=== PATIENT | male | born 1965 | race Asian ===

== ENCOUNTER 2021-02-08 11:50 | Inpatient (IN) | payer BC, SELFPAY ==
[~2021-02-08] VITALS: Ht 160 cm; Wt 71.7 kg
--- NOTE | 2021-02-08 07:05 | NUR ---
ENDORSE PT TO NIGHT NURSE FOR CONTINUITY OF CARE Addendum: 02/08/21 at 1912 by Mamie Tomas RN WRONG TIME.
[2021-02-08 11:52] VITALS: BP 168/92
--- NOTE | 2021-02-08 12:15 | NUR ---
To ED bed 01
--- NOTE | 2021-02-08 12:20 | NUR ---
Dr. Falcon with pt for MSE
--- NOTE | 2021-02-08 12:32 | NUR ---
received pt from triage and placed to bed 01. pt currently a/o x 4 ,gcs 15 and able to move all extremities. connected to cardiac monitoring and pulse ox. VSS 55 year old male with hx of HTN, DM, and BPH coming from home for c/o substernal chest pain and urinary hesitancy for two weeks. pt currently denies SOB/cough. denies headache/blurry vision. denies any other s/sx.
[2021-02-08 12:35] LABS: HEMATOCRIT 43.6 % (36-52); MEAN CORPUSCULAR HEMOGLOBIN 29 pg (27-31); MEAN CORPUSCULAR HGB CONC 34 g/dL (33-37); MEAN CORPUSCULAR VOLUME 83.7 fL (80-94); PLATELET COUNT (AUTO) 432 K/uL (140-450); RED BLOOD CELL COUNT(AUTO) 5.21 MIL/uL (4.20-6.10); RED CELL DISTRIBUTION WIDTH 12.7 % (11.6-13.7); WHITE BLOOD COUNT (AUTO) 11.2 K/uL (4.8-10.8)
[2021-02-08 12:36] LABS: APPEARANCE,URINE CLEAR (CLEAR); BILIRUBIN,URINE NEGATIVE (NEGATIVE); BLOOD, URINE 1+ (NEGATIVE); COLOR,URINE YELLOW (YELLOW); LEUKOCYTE ESTERASE ,URINE NEGATIVE (NEGATIVE); NITRITE, URINE NEGATIVE (NEGATIVE); UGLUCOSE TRACE (NEGATIVE)
[2021-02-08 12:48] LABS: ALBUMIN 4.4 g/dL (3.4-5.0); ANION GAP 15.4 (8-16); CARBON DIOXIDE 22.8 mmol/L (21-32); CREATININE 1.1 mg/dL (0.6-1.3); POTASSIUM 3.2 mmol/L (3.5-5.1); TOTAL BILIRUBIN 0.3 mg/dL (0.0-1.0)
[2021-02-08 13:06] LABS: RBC,URINE 0-5 /HPF (0-5); WBC,URINE NONE SEEN /HPF (0-5)
[2021-02-08] MEDS ORDERED: HYDR-4004 PO (13:09)
[2021-02-08] MEDS ORDERED: AMLO10TA PO (13:09)
[2021-02-08] MEDS ORDERED: GLYB-200 PO ×2 (13:09)
[2021-02-08] MEDS ORDERED: OMEP40EC24 PO (13:09)
[2021-02-08] MEDS ORDERED: METF1000 PO (13:09)
[2021-02-08] MEDS ORDERED: LOSA50TA57 PO (13:09)
[2021-02-08] MEDS ORDERED: ATOR40TA PO (13:09)
[2021-02-08] MEDS ORDERED: TAMS0.4C96 PO (13:09)
[2021-02-08] MEDS ORDERED: FURO-572 PO (13:09)
[2021-02-08] MEDS ORDERED: GEMF600T5 PO (13:09)
[2021-02-08] MEDS ORDERED: NACL 0.9% 1,000 ML IV ONE (13:10)
[2021-02-08] MEDS ORDERED: POTASSIUM CHLORIDE 10 MEQ TABER PO ONE (13:10)
[2021-02-08 13:23] LABS: LYMPHOCYTES % (MANUAL) 11 % (20-46); MONOCYTES % (MANUAL) 7 % (5-12)
--- NOTE | 2021-02-08 13:29 | NUR ---
pt laying down in semi fowlers position. a/o x 4, gcs 15. does not appear to be in any distress. VSS
[2021-02-08] MEDS ORDERED: DOCUSATE SODIUM 100 MG GELCAP PO PRN (13:30)
[2021-02-08] MEDS ORDERED: POTASSIUM CHLORIDE 40 MEQ, LIDOCAINE MPF 1% 25 MG in NACL 0.9% 250 ML IV PRN (13:30)
[2021-02-08] MEDS ORDERED: ONDANSETRON 4 MG/2 ML VIAL IM/IVP PRN (13:30)
[2021-02-08] MEDS: NACL 0.9% 1,000 ML IV SCH ×2 (13:30→19:16)
[2021-02-08] MEDS ORDERED: MORPHINE SULFATE 2 MG/ML SYR IVP PRN (13:30)
[2021-02-08] MEDS ORDERED: SODIUM PHOS / POTASSIUM PHOS 1 PKT PDR PO PRN (13:30)
[2021-02-08] MEDS ORDERED: MAG SULF 2000 MG/WATER PREMIX 50 ML IV PRN (13:30)
[2021-02-08] MEDS ORDERED: HYDROcodone/APAP 5/325 MG 1 TAB TAB PO PRN (13:30)
[2021-02-08] MEDS ORDERED: ACETAMINOPHEN 325 MG TAB PO PRN (13:30)
[2021-02-08] MEDS ORDERED: DEXTROSE 50% 50 ML SYR IVP PRN (13:30)
[2021-02-08 14:11] LABS: MAGNESIUM 1.5 mg/dL (1.8-2.4); PHOSPHORUS 2.4 mg/dL (2.5-4.9); THYROID STIMULATING HORMONE 0.53 uIU/mL (0.34-3.74)
[2021-02-08 14:26] LABS: BARBITURATE, URINE NEGATIVE ng/ml (NEG <=200); BENZODIAZEPINE, URINE NEGATIVE ng/mL (NEG <=200); CANNABINOID, URINE NEGATIVE ng/mL (NEG <=50); COCAINE, URINE NEGATIVE ng/mL (NEG <=300); OPIATE, URINE NEGATIVE ng/mL (NEG <=2000); PHENCYCLIDINE SCREEN,URINE NEGATIVE ng/mL (NEG <=25)
[2021-02-08] MEDS ORDERED: ALBU0.0912 IH (14:26)
[2021-02-08] MEDS ORDERED: FLUT1POW3 IH (14:26)
--- NOTE | 2021-02-08 14:43 | NUR ---
report endorsed to Mamie LARKIN. pt will be going to tele 111-b. pt currently a/o x4, gcs 15. able to move all extremities
--- NOTE | 2021-02-08 14:45 | NUR ---
RECEIVED REPORT FROM ER NURSE ADA. PT IS AAOX4, ROOM AIR. PT HAS 18G LAC INFUSING NS AT 100 ML/H. PT IS AMBULATORY, SKIN INTACT. PT RECEIVED K-DUR IN ER.WILL PREPARE PT'S ROOM AND AWAIT PT.
--- NOTE | 2021-02-08 14:48 | NUR ---
RECEIVED PT FROM ER NURSE. PT STABLE. NO SIGNS OF DISTRESS NOTED. OBTAINED MRSA SWAB. INTRODUCE PT TO ROOM. SAFETY MEASURES IN PLACE, WILL CONTINUE TO MONITOR.
[2021-02-08 14:50] VITALS: BP 143/79
[2021-02-08 16:00] VITALS: BP 116/68
[2021-02-08] MEDS: INSULIN LISPRO SLIDING SCALE 100 UNITS/ML VIAL SUBQ PRN (16:33)
--- NOTE | 2021-02-08 16:33 | NUR ---
ADMINISTERED 4 UNITS OF HUMALOG FOR BLOOD GLUCOSE OF 203. MEDICATION EDUCATION PROVIDED. PT VERBALIZED UNDERSTANDING, PT TOLERATED WELL. WILL CONTINUE TO MONITOR.
[2021-02-08] MEDS: BLOOD GLUCOSE MONITORING 1 DEV DEV FS SCH ×2 (16:34→21:44)
--- NOTE | 2021-02-08 16:35 | NUR ---
ADMINISTERED SCHEDULED MEDICATION, MEDICATION EDUCATION PROVIDED. PT TOLERATED WELL. PT IS STABLE, WILL CONTINUE TO MONITOR
[2021-02-08] MEDS: metFORMIN 500 MG TAB PO SCH (16:51)
--- NOTE | 2021-02-08 16:57 | NUR ---
ADMINISTERED SCHEDULED MEDICATION, NEUTRA-PHOS FOR PHOSPHORUS 2.4. MEDICATION EDUCATION PROVIDED. PT VERBALIZED UNDERSTANDING, PT TOLERATED WELL. WILL CONTINUE TO MONITOR
--- NOTE | 2021-02-08 17:11 | NUR ---
ADMINISTERED MAGNESIUM SULFATE FOR MAGNESIUM 1.5, MEDICATION EDUCATION PROVIDED. PT VERBALIZED UNDERSTANDING. PT TOLERATING WELL. WILL CONTINUE TO MONITOR.
[2021-02-08] MEDS ORDERED: SODIUM PHOS / POTASSIUM PHOS 1 PKT PDR PO ONE (17:15)
[2021-02-08] MEDS ORDERED: MAG SULF 2000 MG/WATER PREMIX 100 ML IV ONE (17:15)
[2021-02-08] MEDS ORDERED: APAP/BUTAL/CAFF 325/50/40 MG 1 TAB PO PRN (17:20)
[2021-02-08] MEDS ORDERED: ALBUTEROL SULFATE/IPRATROPIU 3 ML SOL IH PRN (17:25)
--- NOTE | 2021-02-08 19:05 | NUR ---
ENDORSE PT TO NIGHT NURSE FOR CONTINUITY OF CARE
--- NOTE | 2021-02-08 19:19 | NUR ---
ADMINISTERED SCHEDULED FLUIDS, AFTER MAGNESIUM FINISHED. EDUCATION PROVIDED. PT VERBALIZED UNDERSTANDING. PT TOLERATED WELL. ENDORSE TO NIGHT NURSE FOR CONTINUITY OF CARE.
--- NOTE | 2021-02-08 19:25 | NUR ---
RECEIVED BEDSIDE REPORT FROM DAY SHIFT NURSE FOR CONTINUITY OF CARE. PT IS AWAKE AND ALERT, SPEAKING APPROPRIATELY. ON RA WITH BREATHING UNLABORED. PT IS UP TO THE RESTROOM WITH A STEADY GAIT. SR ON TELE MONITORING. SKIN IS WARM, DRY, AND INTACT. IV IS IN THE LEFT AC 18 GAUGE RUNNING NS AT 100. PT IS STABLE AT THIS TIME. PLAN OF CARE DISCUSSED. UNIVERSAL AND STANDARD PRECAUTIONS IN PLACE.
[2021-02-08 20:00] VITALS: BP 127/76
[2021-02-08 20:39] LABS: ANION GAP 9.1 (8-16); CREATININE 0.9 mg/dL (0.6-1.3); POTASSIUM 3.1 mmol/L (3.5-5.1)
[2021-02-08] MEDS ORDERED: glyBURIDE 5 MG TAB PO SCH (21:00)
--- NOTE | 2021-02-08 21:10 | NUR ---
PT JUST CAME BACK FROM CT SCAN OF THE HEAD. PT WAS TAKEN BY WHEELCHAIR WITH THE CORPORATE ATTORNEY. WILL WAIT FOR RESULTS.
--- NOTE | 2021-02-08 21:26 | NUR ---
NOTIFIED DR. SILVA ABOUT THE CRITICAL LABS OF POTASSIUM 3.1 AND NA 118. RECEIVED RESPONSE AND NEW ORDER OF 0.45% NS AT 50 ML PER HOUR. NS AT 100 ML/HR WAS DISCONTINUED. WILL CHANGE FLUIDS STAT.
[2021-02-08] MEDS ORDERED: NACL 0.45% 1,000 ML IV SCH (21:35)
[2021-02-08] MEDS: TAMSULOSIN 0.4 MG CAP PO SCH (21:38)
[2021-02-08] MEDS: ATORVASTATIN 20 MG TAB PO SCH (21:39)
[2021-02-08] MEDS: glyBURIDE 5 MG TAB PO SCH (21:39)
--- NOTE | 2021-02-08 21:45 | NUR ---
PT IS AWAKE AND ALERT. SPEAKING APPROPRIATELY. A&OX4. PT DENIES ANY PAIN. BREATHING IS UNLABORED ON RA. FLUIDS ARE PATENT AND INFUSING. WILL CONTINUE TO MONITOR.
--- NOTE | 2021-02-08 23:30 | NUR ---
MADE ROUNDS ON PT. HE IS SLEEPING IN SEMI FOWLERS POSITION. AWOKEN EASILY BY NOISE. IV FLUIDS ARE INFUSING ORDERED. NO DISTRESS NOTED. PT IS STABLE.
[2021-02-09] VITALS: BP 117/76
[2021-02-09 00:44] LABS: ANION GAP 9.7 (8-16); CARBON DIOXIDE 29.7 mmol/L (21-32); CREATININE 0.9 mg/dL (0.6-1.3); POTASSIUM 4.4 mmol/L (3.5-5.1)
--- NOTE | 2021-02-09 01:30 | NUR ---
PT IS UP TO THE RESTROOM. GAIT IS STEADY. PT IS ALERT. BREATHING IS REGULAR AND UNLABORED. PT DENIES PAIN. WILL CONTINUE TO MONITOR.
--- NOTE | 2021-02-09 03:11 | NUR ---
PT JUST GOT BACK TO BED AFTER USING THE RESTROOM. PT WAS WALKING STEADILY. IV IS PATENT AND FLUSHING WELL. BEDSIDE TABLE IS WITHIN REACH. CALL LIGHT ALSO WITHIN REACH.
[2021-02-09 04:00] VITALS: BP 115/66
[2021-02-09 04:35] LABS: ANION GAP 8.7 (8-16); CARBON DIOXIDE 30.2 mmol/L (21-32); CREATININE 0.9 mg/dL (0.6-1.3); POTASSIUM 3.9 mmol/L (3.5-5.1)
--- NOTE | 2021-02-09 05:00 | NUR ---
PT IS SLEEPING IN SEMI FOWLERS POSITION. NO DISTRESS NOTED. IV FLUIDS ARE INFUSING. NO SOB, PAIN, OR RESPIRATORY DISTRESS AT THIS TIME. PT IS RESTING COMFORTABLY. BEDSIDE TABLE WITHIN REACH.
[2021-02-09 05:52] LABS: BASOPHILS % (AUTO) 0.4 % (0.0-2.0); EOSINOPHILS # (AUTO) 0.1 K/uL (0-0.4); HEMATOCRIT 43.7 % (36-52); HEMOGLOBIN 15.2 g/dL (12.0-18.0); LYMPHOCYTES # (AUTO) 1.4 K/uL (2.0-11.5); LYMPHOCYTES % (AUTO) 14.9 % (20.5-51.1); MEAN CORPUSCULAR HEMOGLOBIN 30 pg (27-31); MEAN CORPUSCULAR HGB CONC 35 g/dL (33-37); MEAN CORPUSCULAR VOLUME 85.8 fL (80-94); MONOCYTES # (AUTO) 1.2 K/uL (0.8-1.0); MONOCYTES % (AUTO) 13.2 % (1.7-9.3); NEUTROPHILS # (AUTO) 6.4 K/uL (1.8-7.7); NEUTROPHILS % (AUTO) 70.5 % (42.2-75.2); PLATELET COUNT (AUTO) 477 K/uL (140-450); RED CELL DISTRIBUTION WIDTH 12.7 % (11.6-13.7); WHITE BLOOD COUNT (AUTO) 9.1 K/uL (4.8-10.8)
[2021-02-09] MEDS: PANTOPRAZOLE 40 MG TABEC PO SCH (06:21)
[2021-02-09] MEDS: BLOOD GLUCOSE MONITORING 1 DEV DEV FS SCH ×4 (06:21→20:41)
--- NOTE | 2021-02-09 06:21 | NUR ---
BS READING WAS 129. NO INSULIN WAS NEEDED PER SLIDING SCALE. PT IS STABLE.
--- NOTE | 2021-02-09 07:19 | NUR ---
ENDORSED PT TO DAY SHIFT NURSE FOR CONTINUITY OF CARE. PT IS STABLE AT THIS TIME. PLAN OF CARE DISCUSSED.
--- NOTE | 2021-02-09 07:20 | NUR ---
RECEIVED REPORT FROM NIGHT NURSE FOR CONTINUITY OF CARE. PT RESTING IN BED, NO SIGNS OF DISTRESS NOTED. PT ON ROOM AIR. PT HAS LAC 18G INFUSING 1/2 NORMAL SALINE AT 50ML/H. SAFETY MEASURES IN PLACE, WILL CONTINUE TO MONITOR.
[2021-02-09 08:00] VITALS: BP 132/69
[2021-02-09] MEDS: metFORMIN 500 MG TAB PO SCH ×2 (08:18→17:08)
[2021-02-09] MEDS: glyBURIDE 5 MG TAB PO SCH ×2 (08:19→20:42)
[2021-02-09] MEDS: LOSARTAN 50 MG TAB PO SCH (08:19)
[2021-02-09] MEDS: amLODIPine 5 MG TAB PO SCH (08:19)
--- NOTE | 2021-02-09 08:22 | NUR ---
ADMINISTERED SCHEDULED MEDICATION, MEDICATION EDUCATION PROVIDED. PT VERBALIZED UNDERSTANDING. PT TOLERATED WELL. WILL CONTINUE TO MONITOR.
[2021-02-09] MEDS ORDERED: hydroCHLOROthiazide 25 MG TAB PO SCH (09:00)
[2021-02-09 09:21] LABS: ANION GAP 10.2 (8-16); CARBON DIOXIDE 28.1 mmol/L (21-32); CREATININE 0.9 mg/dL (0.6-1.3); POTASSIUM 4.3 mmol/L (3.5-5.1)
[2021-02-09] MEDS: NACL 0.9% 1,000 ML IV SCH ×2 (10:25→23:52)
--- NOTE | 2021-02-09 10:27 | NUR ---
ADMINISTERED SCHEDULED FLUIDS, MEDICATION EDUCATION PROVIDED. PT VERBALIZED UNDERSTANDING. PT TOLERATED WELL. PT IS STABLE, WILL CONTINUE TO MONITOR.
[2021-02-09] MEDS: INSULIN LISPRO SLIDING SCALE 100 UNITS/ML VIAL SUBQ PRN (11:25)
--- NOTE | 2021-02-09 11:26 | NUR ---
ADMINISTERED 4 UNITS OF HUMALOG FOR BLOOD GLUCOSE OF 230. MEDICATION EDUCATION PROVIDED. PT VERBALIZED UNDERSTANDING. PT TOLERATED WELL. PT IS STABLE, WILL CONTINUE TO MONITOR.
[2021-02-09 12:00] VITALS: BP 115/60
--- NOTE | 2021-02-09 13:26 | NUR ---
PT SITTING IN BED, NO SIGNS OF DISTRESS NOTED, ALL NEEDS MET. WILL CONTINUE TO MONITOR
[2021-02-09 13:47] LABS: CARBON DIOXIDE 27.4 mmol/L (21-32); POTASSIUM 3.4 mmol/L (3.5-5.1)
--- NOTE | 2021-02-09 13:52 | NUR ---
NOTIFIED DR SILVA PT SODIUM: 116, RECEIVED VERBAL ORDERED TO INCREASE NORMAL SALINE TO 80ML/H. WILL INPUT ORDER AND CARRY IT OUT.
--- NOTE | 2021-02-09 15:27 | NUR ---
ROUNDING ON PT. PT SITTING BY BED. PT IS STABLE, NO SIGNS OF DISTRESS NOTED. WILL CONTINUE TO MONITOR.
[2021-02-09 16:00] VITALS: BP 133/81
[2021-02-09 16:31] LABS: ANION GAP 10.7 (8-16); POTASSIUM 3.7 mmol/L (3.5-5.1)
--- NOTE | 2021-02-09 17:11 | NUR ---
ADMINISTERED SCHEDULED MEDICATION, MEDICATION EDUCATION PROVIDED. PT VERBALIZED UNDERSTANDING. PT TOLERATED WELL. WILL CONTINUE TO MONITOR.
--- NOTE | 2021-02-09 19:15 | NUR ---
ENDORSE PT TO NIGHT NURSE FOR CONTINUITY OF CARE
--- NOTE | 2021-02-09 19:20 | NUR ---
RECEIVED BEDSIDE REPORT FROM DAY SHIFT NURSEJAGUAR, FOR CONTINUITY OF CARE. PT IS AWAKE AND ALERT, A&OX4. ANSWERS QUESTIONS APPROPRIATELY. PT IS UP AT THE SINK BRUSHING TEETH. NO RESPIRATORY DISTRESS NOTED ON RA. SR ON TELE MONITORING. SKIN IS WARM, DRY, AND INTACT. NS IS INFUSING THROUGH LEFT AC 18 GAUGE AT 80 ML/HR PER ORDER. PT IS STABLE AT THIS TIME. PLAN OF CARE DISCUSSED. STANDARD PRECAUTIONS IN PLACE.
[2021-02-09 20:00] VITALS: BP 131/71
--- NOTE | 2021-02-09 20:09 | NUR ---
LAB AT BEDSIDE DRAWING BMP. WILL WAIT FOR RESULTS.
[2021-02-09 20:30] LABS: ANION GAP 9.9 (8-16); CARBON DIOXIDE 29.3 mmol/L (21-32); POTASSIUM 4.2 mmol/L (3.5-5.1)
--- NOTE | 2021-02-09 20:31 | NUR ---
TECH JUST COMPLETED ECHOCARDIOGRAM AT BEDSIDE WITH PT. WILL WAIT FOR RESULTS.
--- NOTE | 2021-02-09 20:41 | NUR ---
BS READING WAS 74 AND HE WAS GIVEN ORANGE JUICE TO DRINK. PT FINISHED THE ORANGE JUICE AND NOW IS LAYING IN SEMI FOWLERS POSITION. HE IS STABLE AT THIS TIME.
[2021-02-09] MEDS: ATORVASTATIN 20 MG TAB PO SCH (20:42)
[2021-02-09] MEDS: TAMSULOSIN 0.4 MG CAP PO SCH (20:42)
--- NOTE | 2021-02-09 22:48 | NUR ---
PT IS SLEEPING IN SEMI FOWLERS POSITION. PT AWOKE WHEN WALKING INTO THE ROOM. STATED HE HAD A HEADACHE. PT STATED IT WAS MORE OF AN ACHING PAIN. A&OX4. NO CONFUSION NOTED. PT IS SPEAKING APPROPRIATELY. HE WAS OFFERED TYLENOL BUT THE PATIENT ONLY WANTED AN ICE PACK. WILL MONITOR HEADACHE.
[2021-02-10] VITALS (7 sets, daily range): BP systolic 112–140; BP diastolic 55–83
--- NOTE | 2021-02-10 00:30 | NUR ---
ROUNDED ON PT. HE IS LAYING IN BED, AWAKE, AND ALERT. PT DENIES ANY PAIN. RESPIRATIONS ARE EVEN AND UNLABORED. IV IS PATENT AND INFUSING. IV IS INTACT WITH NO SIGNS OF INFILTRATION PRESENT. BED IS IN THE LOWEST POSITION.
[2021-02-10 00:37] LABS: ANION GAP 7.5 (8-16); POTASSIUM 3.5 mmol/L (3.5-5.1)
--- NOTE | 2021-02-10 02:30 | NUR ---
PT IS SLEEPING. CHEST RISE AND FALL IS SYMMETRICAL. NO RESPIRATORY DISTRESS. NO PAIN OR SOB NOTED. PT IS STABLE.
--- NOTE | 2021-02-10 04:30 | NUR ---
PT IS UP TO THE RESTROOM. GAIT IS STEADY. A&OX4. SPEAKING APPROPRIATELY. NO APPARENT SIGNS OF CONFUSION. BREATHING IS UNLABORED. WILL CONTINUE TO MONITOR.
[2021-02-10 06:03] LABS: BASOPHILS % (AUTO) 0.3 % (0.0-2.0); EOSINOPHILS # (AUTO) 0.1 K/uL (0-0.4); EOSINOPHILS % (AUTO) 0.7 % (0.0-4.0); HEMOGLOBIN 14.7 g/dL (12.0-18.0); LYMPHOCYTES # (AUTO) 1.9 K/uL (2.0-11.5); LYMPHOCYTES % (AUTO) 21.5 % (20.5-51.1); MEAN CORPUSCULAR HEMOGLOBIN 29 pg (27-31); MEAN CORPUSCULAR HGB CONC 34 g/dL (33-37); MEAN CORPUSCULAR VOLUME 86.1 fL (80-94); MONOCYTES # (AUTO) 1.2 K/uL (0.8-1.0); MONOCYTES % (AUTO) 13.7 % (1.7-9.3); NEUTROPHILS # (AUTO) 5.7 K/uL (1.8-7.7); NEUTROPHILS % (AUTO) 63.8 % (42.2-75.2); PLATELET COUNT (AUTO) 472 K/uL (140-450); RED BLOOD CELL COUNT(AUTO) 4.99 MIL/uL (4.20-6.10); RED CELL DISTRIBUTION WIDTH 12.4 % (11.6-13.7); WHITE BLOOD COUNT (AUTO) 8.9 K/uL (4.8-10.8)
[2021-02-10 06:13] LABS: ANION GAP 8.9 (8-16); CARBON DIOXIDE 30.4 mmol/L (21-32); CREATININE 0.9 mg/dL (0.6-1.3); POTASSIUM 3.3 mmol/L (3.5-5.1)
[2021-02-10] MEDS: PANTOPRAZOLE 40 MG TABEC PO SCH (06:13)
[2021-02-10] MEDS: BLOOD GLUCOSE MONITORING 1 DEV DEV FS SCH ×4 (06:15→21:50)
[2021-02-10 06:16] LABS: MAGNESIUM 1.8 mg/dL (1.8-2.4); PHOSPHORUS 2.8 mg/dL (2.5-4.9)
--- NOTE | 2021-02-10 07:10 | NUR ---
ENDORSED PT TO DAY SHIFT NURSE FOR CONTINUITY OF CARE. PT IS AWAKE AND ALERT. STABLE AT THIS TIME. PLAN OF CARE DISCUSSED.
--- NOTE | 2021-02-10 07:25 | NUR ---
REC'D REPORT FROM SAFETY RELIEF VALVE TECHNICIAN NURSE, PT AWAKE, A/Ox4, L.AC 18 G INFUSING NS AT 80ML/HR CALL LIGHT WITHIN REACH, BED LOWEST POSITION. STABLE
[2021-02-10 08:23] LABS: CARBON DIOXIDE 29.4 mmol/L (21-32); CREATININE 0.8 mg/dL (0.6-1.3); POTASSIUM 3.4 mmol/L (3.5-5.1)
--- NOTE | 2021-02-10 09:15 | NUR ---
PATIENT HAS BEEN SCREENED AND CATEGORIZED MODERATE NUTRITION RISK. PATIENT WILL BE SEEN WITHIN 3-5 DAYS OF ADMISSION. 02/11/21 02/13/[address]
[2021-02-10] MEDS: metFORMIN 500 MG TAB PO SCH ×2 (10:24→17:24)
[2021-02-10] MEDS: glyBURIDE 5 MG TAB PO SCH ×2 (10:24→21:00)
[2021-02-10] MEDS: amLODIPine 5 MG TAB PO SCH (10:24)
[2021-02-10] MEDS: LOSARTAN 50 MG TAB PO SCH (10:25)
--- NOTE | 2021-02-10 11:15 | NUR ---
DC PLANNIN YRS OLD MALE PATIENT WAS ADMITTED FROM HOME WITH A DX OF HYPONATREMIA AND HYPOKALEMIA AND CHEST PAIN. PT HAS A HX OF SODIUM LEVEL ON ADMISSION 118 ADMINISTERED IVF AND NA+LEVEL 125. CXR AND CT HEAD NEGATIVE. RAPID COVID TEST NEGATIVE. CONSULTED WITH SERVICE [employer]OP FOREMAN ORDERED TO CONTINUE IVF AND HOLD HCTZ. DC PLAN TO GO HOME WHEN STABLE. CM TO FOLLOW.
--- NOTE | 2021-02-10 11:18 | NUR ---
ADMINISTERED IV MEDICATION PER MD ORDER, MOA AND SIDE EFFECTS DISCUSSED WITH PT WHO VERBALIZED UNDERSTANDING, PT TOLERATED PROCEDURE WELL. WILL CONTINUE TO MONITOR
--- NOTE | 2021-02-10 11:40 | NUR ---
FINGER BLOOD GLUCOSE LEVEL CHECKED 161. PT TOLERATED PROCEDURE WELL
--- NOTE | 2021-02-10 12:10 | NUR ---
SOCIAL WORK NOTE: Patient's Orientation Person Situation Place Time Information Provided By PATIENT Comments SW WAS UNABLE TO MEET PATIENT AT BEDSIDE. SW COMPLETED ASSESSMENT TELEPHONICALLY. Broaching Machine Set Up Operator, Realtionship and Phone Number ALVA LANDIN DAUGHTER [phone] [facility] Power of Engagement Director No Does Patient Have a POLST No Identifying Problems No Social Work Triggers Is A Social Work Consult Needed No Mandate Report Filed No Explanation Of Identifying Problems PATIENT IS A 55-YEAR-OLD MALE ADMITTED FOR HYPONATREMIA AND HYPOKALEMIA. PATIENT HAS PMHX OF DIABETES, HYPERTENSION, BPA, AND CHF. Admitted From Home Pre-Admission Level Of Functioning Status Independent With DME Prior Resources/Services Used In Last 12 Months No Prior Resources Used Prior DME Walker Dialysis Comments N/A Living Situation Lives With Family House Patient Had Caregiver No Home Support No Caregiver Issues Financial Issues No Known Financial Issue Referral To The Financial Counselor Needed No Factors/Needs No D/C Needs Identified Pt/Rep Participated In Discharge Plan Yes Patient/Family Agress With Discharge Plan Yes Discharge Plan Comments TENTATIVE DISCHARGE PLAN IS FOR PATIENT TO RETURN HOME. DC Plan Status Initiated
[2021-02-10] MEDS: INSULIN LISPRO SLIDING SCALE 100 UNITS/ML VIAL SUBQ PRN (12:16)
--- NOTE | 2021-02-10 12:20 | NUR ---
ADMINISTERED INSULIN PER SLIDING SCALE, DISCUSSED MOA AND SIDE EFFECTS PT VERBALIZED UNDERSTANDING, PT TOLERATED PROCEDURE WELL.
[2021-02-10 12:21] LABS: ANION GAP 6.8 (8-16); CREATININE 0.9 mg/dL (0.6-1.3); POTASSIUM 3.8 mmol/L (3.5-5.1)
--- NOTE | 2021-02-10 15:25 | NUR ---
PT RESTING, WATCHING WATCHING TV. NO SIGN OF DISTRESS, WILL CONTINUE TO MONITOR
[2021-02-10] MEDS: NACL 0.9% 1,000 ML IV SCH (16:16)
[2021-02-10 17:48] LABS: ANION GAP 11.2 (8-16); CARBON DIOXIDE 25.4 mmol/L (21-32); POTASSIUM 3.6 mmol/L (3.5-5.1)
--- NOTE | 2021-02-10 18:11 | NUR ---
FINGER GLUCOSE CHECK AFTER ADMINISTRATION OF DEXTROSE: 172.
--- NOTE | 2021-02-10 19:30 | NUR ---
ENDORSED PT FOR CONTINUITY OF CARE, PT STABLE NO SIGN OF DISTRESS, ENDORSED GLUCOSE LEVEL TO NURSING DIRECTOR NURSE
--- NOTE | 2021-02-10 19:30 | NUR ---
RECEIVED PATIENT FROM AM SHIFT NURSE FOR CONTINUITY OF CARE. ALERT AND ABLE TO MAKE NEEDS KNOWN. RESPIRATIONS EVEN, UNLABORED. NO S/S RESPIRATORY DISTRESS. NO C/O PAIN. NO S/S ACUTE DISTRESS. SKIN WARM, DRY. IV SITE NOTED TO LEFT AC 18G PATENT/INTACT, INFUSING FLUIDS WELL. ABDOMEN SOFT, NONTENDER, NONDISTENDED. BOWEL SOUNDS ACTIVE x4 QUADRANTS. PATIENT IS CONTINENT OF B/B. PLAN OF CARE DISCUSSED. CALL LIGHT WITHIN REACH AT ALL TIMES.
--- NOTE | 2021-02-10 20:29 | NUR ---
PT RESTING COMFORTABLY IN BED ON RA W/ NO DISTRESS NOTED. CURRENT SPO2 96% WILL CONTINUE TO MONITOR
[2021-02-10] MEDS: TAMSULOSIN 0.4 MG CAP PO SCH (21:50)
[2021-02-10] MEDS: ATORVASTATIN 20 MG TAB PO SCH (21:50)
--- NOTE | 2021-02-10 21:51 | NUR ---
PATIENT REFUSED GLYBURIDE x3. RISKS AND BENEFITS EXPLAINED. PATIENT VERBALIZED UNDERSTANDING. BLOOD GLUCOSE 106 MG/DL.
--- NOTE | 2021-02-10 23:00 | NUR ---
PATIENT IS AMBULATING TO THE REST ROOM. NO S/S ACUTE DISTRESS. NO C/O PAIN. ALL NEEDS ANTICIPATED AND MET.
[2021-02-11] VITALS: BP 116/68
[2021-02-11] MEDS: NACL 0.9% 1,000 ML IV SCH (00:48)
--- NOTE | 2021-02-11 01:00 | NUR ---
MADE ROUNDS. PATIENT IS ASLEEP. NO S/S ACUTE DISTRESS. CALL LIGHT WITHIN REACH.
--- NOTE | 2021-02-11 03:00 | NUR ---
PATIENT IS ASLEEP. NO S/S ACUTE DISTRESS. CALL LIGHT WITHIN REACH.
--- NOTE | 2021-02-11 05:30 | NUR ---
DUE MEDS GIVEN. PATIENT RESTING COMFORTABLY IN BED. NO C/O PAIN. NO S/S ACUTE DISTRESS. CALL LIGHT WITHIN REACH.
[2021-02-11 06:00] VITALS: BP 113/80
[2021-02-11] MEDS: BLOOD GLUCOSE MONITORING 1 DEV DEV FS SCH (06:30)
[2021-02-11] MEDS: PANTOPRAZOLE 40 MG TABEC PO SCH (06:30)
--- NOTE | 2021-02-11 07:20 | NUR ---
ENDORSED PATIENT TO AM SHIFT NURSE FOR CONTINUITY OF CARE.
--- NOTE | 2021-02-11 07:25 | NUR ---
RECEIVED PT FROM COUNTER ATTENDANT NURSEFLEX, PT IS AWAKE AND STANDING ON THE BEDSIDE, VERBALIZING WHEN CAN HE GO HOME, WAS TOLD TO WAIT FOR THE DOCTOR TO MAKE HIS ROUNDS, PT VERBALIZED UNDERSTANDING, ON RA, AOX4, IV LINE NOTED ON THE LAC G. 18 WITH IVF NS INFUSING AT 80ML/HR, AMBULATES, NO SIGN OF DISTRESS NOTED AND WILL CONTINUE TO BE MONITORED.
[2021-02-11 08:00] VITALS: BP 146/90
[2021-02-11 09:00] LABS: BASOPHILS # (AUTO) 0.1 K/uL (0.00-0.22); BASOPHILS % (AUTO) 0.7 % (0.0-2.0); EOSINOPHILS % (AUTO) 0.1 % (0.0-4.0); HEMATOCRIT 41.1 % (36-52); HEMOGLOBIN 14.1 g/dL (12.0-18.0); LYMPHOCYTES # (AUTO) 0.9 K/uL (2.0-11.5); LYMPHOCYTES % (AUTO) 12.9 % (20.5-51.1); MEAN CORPUSCULAR HEMOGLOBIN 30 pg (27-31); MEAN CORPUSCULAR HGB CONC 34 g/dL (33-37); MONOCYTES # (AUTO) 0.7 K/uL (0.8-1.0); MONOCYTES % (AUTO) 9.7 % (1.7-9.3); NEUTROPHILS # (AUTO) 5.6 K/uL (1.8-7.7); NEUTROPHILS % (AUTO) 76.6 % (42.2-75.2); PLATELET COUNT (AUTO) 466 K/uL (140-450); RED BLOOD CELL COUNT(AUTO) 4.78 MIL/uL (4.20-6.10); RED CELL DISTRIBUTION WIDTH 12.7 % (11.6-13.7); WHITE BLOOD COUNT (AUTO) 7.3 K/uL (4.8-10.8)
[2021-02-11 09:07] LABS: ANION GAP 11.4 (8-16); CARBON DIOXIDE 27.4 mmol/L (21-32); CREATININE 0.8 mg/dL (0.6-1.3); POTASSIUM 3.8 mmol/L (3.5-5.1)
[2021-02-11 09:11] LABS: MAGNESIUM 1.5 mg/dL (1.8-2.4); PHOSPHORUS 2.7 mg/dL (2.5-4.9)
[2021-02-11] MEDS ORDERED: SODI1TAB1 PO (09:16)
[2021-02-11] MEDS: amLODIPine 5 MG TAB PO SCH (09:23)
[2021-02-11] MEDS: metFORMIN 500 MG TAB PO SCH (09:24)
[2021-02-11] MEDS: LOSARTAN 50 MG TAB PO SCH (09:26)
[2021-02-11] MEDS: glyBURIDE 5 MG TAB PO SCH (09:26)
--- NOTE | 2021-02-11 09:36 | NUR ---
PT WAS GIVEN THE SCHEDULED AM MEDICATIONS, TOLERATED, WILL MONITOR PT
[2021-02-11] MEDS ORDERED: MAGN241.1 PO (10:50)
[2021-02-11] MEDS ORDERED: MAGNESIUM OXIDE 400 MG TAB PO SCH (11:00)
--- NOTE | 2021-02-11 11:02 | NUR ---
PT WAS GIVEN 800MG MAGNESIUM OXIDE FOR MG LEVEL OF 1.5.
--- NOTE | 2021-02-11 11:20 | NUR ---
DISCHARGED PT TO HOME, DISCHARGED INSTRUCTIONS WERE GIVEN TO PT AND PT VERBALIZED UNDERSTANDING, IV LINE AND ARM BAND REMOVED, PT DENIES PAIN AND IS STABLE AT THIS TIME.
== END 2021-02-11 11:20 | disposition home or self-care (01) | DRG 640 ==
LOC: MED 11:50 → MTU 14:17
PROVIDERS: ADMIT Hospitalist; ATTEND Hospitalist
DX: E87.1 Hypo-osmolality and hyponatremia (principal); G93.41 Metabolic encephalopathy; E11.9 Type 2 diabetes mellitus without complications; N40.0 Benign prostatic hyperplasia without lower urinary tract symptoms; I11.0 Hypertensive heart disease with heart failure; I50.9 Heart failure, unspecified; E87.6 Hypokalemia; E78.00 Pure hypercholesterolemia, unspecified; J45.909 Unspecified asthma, uncomplicated; R51.9 Headache, unspecified; E86.0 Dehydration; D72.829 Elevated white blood cell count, unspecified; F43.9 Reaction to severe stress, unspecified; R07.9 Chest pain, unspecified; Z20.822 Contact with and (suspected) exposure to COVID-19; Z79.84 Long term (current) use of oral hypoglycemic drugs; Z79.899 Other long term (current) drug therapy
CPT/HCPCS: 36415; 70450; 71046; 80048; 80053; 80305; 81001; 82570; 82948; 83036; 83735; 83880; 83930; 83935; 84100; 84300; 84443; 84484; 85025; 87081; 87086; 93005; 96360; 99291; J1644; J1815; J2001; J3475; J3480; J7030